=== PATIENT | female | born 1950 | race Caucasian/White ===

== ENCOUNTER 2021-02-15 08:48 | Emergency (ER) | payer OTHER, SELFPAY ==
[2021-02-15 08:49] VITALS: BP 119/59; PULSE 69; RESP 16; TEMP 36.6; O2SAT 100; BMI 20.2
--- NOTE | 2021-02-15 09:06 | CT_ITS ---
STUDY: CT ABDOMEN AND PELVIS WITH CONTRAST REASON FOR EXAM: Female, 70 years old. RUQ and RLQ pain -- IV PO Contrast RADIATION DOSAGE (If Supplied By Facility): CTDIvol = ( 11.00 ) mGy, DLP = ( 252.10 ) mGycm TECHNIQUE: Transaxial images were obtained from the dome of the diaphragm to the symphysis pubis without oral contrast. Oral and amp; IV Gastrografin and amp; 100mL Isovue-300 was administered. Sagittal and coronal images were reconstructed. Individualized dose optimization techniques were used for this CT. COMPARISON: None. FINDINGS: The visualized lung bases are unremarkable. The visualized portions of the heart are within normal limits. Normal liver. Normal gallbladder and extrahepatic biliary system. Normal spleen. Normal pancreas. Normal bilateral adrenal glands. Normal right kidney. 4.5 cm cyst in the upper pole the left kidney. Normal visualized stomach. Normal small intestine. Normal colon. There is non-visualization of the appendix. Normal abdominal aorta. Normal inferior vena cava. Normal retroperitoneum. Normal urinary bladder. Normal abdominal wall. Normal osseous structures. CT/Abdomen/Pelvis WITH Contrast IMPRESSION: No acute abnormality. Electronically Signed: Edwin Mcdonald MD at 11:58 EDT Tel , Service support ,
--- NOTE | 2021-02-15 09:07 | ED.VIS.GI ---
HPI HPI - GI History of Present Illness Chief Complaint: Abd Pain Informant: patient Abdominal Pain/Flank Pain Onset: Days Context: Gradual Onset Narrative Narrative: 70-year-old female presents with abdominal pain. She states this started 2 to 3 days ago but has been progressively worsening. She has nausea with no vomiting. She denies diarrhea or constipation. Denies blood in her stool. She denies fever. Denies chest pain or shortness of breath. She has right upper and right lower quadrant pain. Prior similar symptoms: No Recent Illness/Hospitalization: No PFSH PFSH Medical History (Updated 02/15/21 @ 12:[address] Ifeoma Smith MD) ADD (attention deficit disorder) Anxiety Chronic back pain Depression Essential tremor Fibromyalgia TIA (transient ischemic attack) Home Medications bupropion HCl 300 mg PO DAILY 10/28/16 [History Last Taken 10/27/16] etodolac 500 mg PO BID 10/28/16 [History Last Taken 10/28/16] gabapentin [Neurontin] 400 mg PO BID 10/28/16 [History Last Taken 10/28/16] gabapentin [Neurontin] 800 mg PO QHS 10/28/16 [History Last Taken 10/27/16] hydroxychloroquine 200 mg PO DAILYCM 10/28/16 [History Last Taken 10/28/16] mometasone-formoterol [Dulera] 2 puff IH BID 10/28/16 [History Last Taken 10/28/16] montelukast 10 mg PO QHS 10/28/16 [History Last Taken 10/27/16] nystatin 5 ml PO 4X/DAY 10/28/16 [History Last Taken 10/28/16] pantoprazole 40 mg PO DAILY 10/28/16 [History Last Taken 10/28/16] topiramate 200 mg PO BID 10/28/16 [History Last Taken 10/28/16] albuterol sulfate [ProAir HFA] 2 puff INHALATION Q4H PRN PRN 10/29/16 [History Last Taken Unknown] biotin 5,000 mcg PO DAILY 10/29/16 [History Last Taken Unknown] ceramides 1,3,6-II [CeraVe] 355 ml TP DAILY 10/29/16 [History Last Taken Unknown] desonide 1 applic TOPICAL BID PRN 10/29/16 [History Last Taken Unknown] doxycycline monohydrate [Monodox] 100 mg PO BID 10/29/16 [History Last Taken Unknown] fluticasone propionate 1 spray NASAL DAILY 10/29/16 [History Last Taken Unknown] folic acid 0.8 mg PO DAILY@0800 10/29/16 [History Last Taken Unknown] hyoscyamine sulfate 0.125 mg PO Q4H PRN PRN 10/29/16 [History Last Taken Unknown] mupirocin calcium [Bactroban] 1 applic TOPICAL PRN PRN 10/29/16 [History Last Taken Unknown] omega 9-bdl-ohd-other om3-D3 [[place]-3 + Vitamin D3] 200 ml PO DAILY 10/29/16 [History Last Taken Unknown] promethazine 25 mg PO Q6H PRN PRN 10/29/16 [History Last Taken Unknown] acetaminophen [Tylenol] 650 mg PO Q4H PRN PRN tab 10/30/16 [Rx Last Taken Unknown] atorvastatin 10 mg PO HS #30 tab 10/30/16 [Rx Last Taken Unknown] Allergy/AdvReac Type Severity Reaction Status Date / Time latex Allergy Swelling Verified 02/15/21 08:50 Sulfa (Sulfonamide Allergy Hives Verified 02/15/21 08:50 Antibiotics) duloxetine AdvReac Other Verified 02/15/21 08:50 pregabalin [From Lyrica] AdvReac Other Verified 02/15/21 08:50 Social History Smoking Status: Never smoker ROS ROS ED Constitutional Constitutional ED: Denies fever(s) Eyes Eyes: Denies change in vision ENT ENT ED: Denies rhinorrhea or sore throat Cardiovascular Cardiovascular: Denies chest pain or palpitations Respiratory/Chest Respiratory/Chest: Denies cough or dyspnea Gastrointestinal Gastrointestinal: Reports abdominal pain and nausea; Denies constipation, diarrhea or vomiting Genitourinary Genitourinary ED: Denies dysuria Musculoskeletal Musculoskeletal: Denies myalgias Integumentary Denies rash Neurologic Neurologic: Denies headache(s) Psychiatric Psychiatric: Denies suicidal thoughts EXAM Physical Exam Const Vital Signs: 02/15/21 08:49 02/15/21 10:56 02/15/21 12:06 Temperature 97.9 F Temperature Source Temporal Pulse Rate 69 69 81 Respiratory Rate 16 14 Blood Pressure 119/59 L 111/61 113/67 Blood Pressure Mean 79 77 82 Pulse Ox 100 99 99 Oxygen Delivery Method Room Air Room Air Room Air Positive well nourished and well developed General Appearance ED: well developed HEENT Reports normocephalic and head/scalp atraumatic Eyes PERRL and EOMs intact bilaterally Neck supple General: Negative for tenderness Chest Wall inspection of chest normal Resp normal respiratory effort and clear to auscultation bilaterally Cardio regular rate and regular rhythm GI non-distended Palpation: soft and tender RLQ and RUQ; Negative for guarding or rebound tenderness present no CVA tenderness Back/Spine General Back: Negative for CVA tenderness Extremity normal to inspection Neuro oriented x3 Sensorium / Orientation: alert Psych mental status grossly normal Skin Rashes: no rashes MDM MDM MDM Narrative Medical decision making narrative: Patient is given IV fluids. She declined pain medication. CBC, chemistries unremarkable. Lipase is normal. Urinalysis unremarkable. She was given Zofran IV. CT abdomen pelvis shows no acute process, nonvisualization of the appendix. On reevaluation she is resting comfortably. Her pain is more in the right upper quadrant than right lower quadrant. Discussed with Dr. Hernandez and patient will be seen as an outpatient. Patient is agreeable with this plan. Patient is advised signs and symptoms for which to return to the ED. Lab Data Attestation: I reviewed the patient's lab results. Labs: Laboratory Results - last 24 hr 02/15/21 02/15/21 02/15/21 09:12 09:15 09:15 WBC 6.1 RBC 3.90 L Hgb 12.9 Hct 39.5 MCV 101.3 H MCH 33.1 H MCHC 32.7 RDW Std Deviation 47.8 H RDW Coeff of Jeramy 12.8 Plt Count 238 MPV 9.2 Immature Gran % (Auto) 0.300 Neut % (Auto) 70.8 H Lymph % (Auto) 14.0 L Kendall % (Auto) 9.9 Eos % (Auto) 4.5 Baso % (Auto) 0.5 Absolute Neuts (auto) 4.3 Absolute Lymphs (auto) 0.85 Nucleated RBC % 0 Sodium 139 Potassium 4.0 Chloride 102 Carbon Dioxide 32.0 Anion Gap 5 BUN 16 Creatinine 0.53 L Estim Creat Clear Calc 40.07 Est GFR (MDRD) Af Amer 146 Est GFR (MDRD) Non-Af 120 BUN/Creatinine Ratio 30.0 H Glucose 94 Calcium 9.0 Total Bilirubin 0.50 AST 20 ALT 29 Alkaline Phosphatase 104 Total Protein 6.9 Albumin 3.6 Globulin 3.3 Albumin/Globulin Ratio 1.1 Lipase 118 Urine Color Straw Urine Clarity Clear Urine pH 7.0 Ur Specific [place] 1.005 Urine Protein Negative Urine Glucose (UA) Normal Urine Ketones Negative Urine Occult Blood 50 H Urine Nitrite Negative Urine Bilirubin Negative Urine Urobilinogen Normal Ur Leukocyte Esterase Negative Urine RBC 0-5 SEEN Urine WBC 0 SEEN Ur Squamous Epith Cells 0-5 SEEN Urine Bacteria 0 SEEN Urine Mucus 0 SEEN Radiography Diagnostic Testing: Radiology Impression Abdomen/Pelvis CT 02/15/21 09:06 IMPRESSION: No acute abnormality. Electronically Signed: Edwin Mcdonald MD at 11:58 EDT Tel , Service support , Discharge Plan Triage Chief Complaint: Abd Pain ED Provider: Ifeoma Smith Dx/Rx/DC Orders Clinical Impression: Abdominal pain of unknown cause Instructions: ED Abdominal Pain Unkn Cause Fem Prescriptions: No Action nystatin 100,000 UNIT/ML Oral.Susp 5 ml PO 4X/DAY RF: 0 gabapentin [Neurontin] 400 MG capsule 800 mg PO QHS RF: 0 gabapentin [Neurontin] 400 MG capsule 400 mg PO BID RF: 0 pantoprazole 40 MG tablet 40 mg PO DAILY RF: 0 montelukast 10 MG tablet 10 mg PO QHS RF: 0 topiramate 200 MG tablet 200 mg PO BID RF: 0 hydroxychloroquine 200 MG tablet 200 mg PO DAILYCM RF: 0 etodolac 500 MG tablet 500 mg PO BID RF: 0 bupropion HCl 300 MG tablet extended release 24 hr 300 mg PO DAILY RF: 0 mometasone-formoterol [Dulera] 8.8 GM Hfa.Aer.Ad 2 puff IH BID RF: 0 desonide 1 APPLIC cream 1 applic topical BID PRN (Reason: Itching) RF: 0 doxycycline monohydrate [Monodox] 100 MG capsule 100 mg PO BID RF: 0 hyoscyamine sulfate 0.125 MG Tab.Subl 0.125 mg PO Q4H PRN PRN (Reason: Cramp) RF: 0 promethazine 25 MG tablet 25 mg PO Q6H PRN PRN (Reason: Nausea) RF: 0 mupirocin calcium [Bactroban] 15 GM Cream..G. 1 applic topical PRN PRN (Reason: Itching) RF: 0 albuterol sulfate [ProAir HFA] 1 PUFF inhaler 2 puff inhalation Q4H PRN PRN (Reason: Asthma) RF: 0 fluticasone propionate 1 SPRAY Nasal.Sry 1 spray NASAL DAILY RF: 0 folic acid 0.8 MG tablet 0.8 mg PO DAILY@0800 RF: 0 ceramides 1,3,6-II [CeraVe] 355 ML Lotion 355 ml TP DAILY RF: 0 biotin 2,500 MCG capsule 5,000 mcg PO DAILY RF: 0 omega 4-shq-hbn-other om3-D3 [[place]-3 + Vitamin D3] 200 ML Liquid 200 ml PO DAILY RF: 0 atorvastatin 40 MG tablet 10 mg PO HS Qty: 30 RF: 0 acetaminophen [Tylenol] 325 MG tablet 650 mg PO Q4H PRN PRN (Reason: Headache/Temp>99F) RF: 0 Primary Care Provider: Trudy Benavides Referrals: Trudy Benavides MD [Primary Care Provider] - Margot Hernandez MD [STAFF PHYSICIAN] - Disposition Disposition: Home, Self Care
[2021-02-15 09:17] LABS: Bacteria 0 SEEN /hpf (None Seen); Mucous, Urine 0 SEEN /hpf (<or=2+); White Blood Cells 0 SEEN /hpf (0-5)
[2021-02-15 09:19] LABS: Absolute Lymphocyte Count 0.85 X10^3/uL (0.83-4.51); Absolute Neutrophil Count 4.3 X10^3/uL (2.0-7.7); Basophil# 0.03 X10^3/uL; Basophil% 0.5 % (0-1); Eosinophil# 0.27 X10^3/uL; Eosinophils% 4.5 % (0-5); Hematocrit 39.5 % (37-47); Hemoglobin 12.9 g/dL (12.0-15.0); Lymphocyte # 0.85 X10^3/ul (0.83-4.51); Mean Corp Hgb Conc 32.7 g/dL (32-36); Mean Corpuscular Hgb 33.1 pg (27.0-32.0); Mean Corpuscular Volume 101.3 fL (81-99); Mean Platelet Vol. 9.2 fl (6.2-12.0); Monocyte% 9.9 % (0-10); NRBC Flagged by Analyzer 0 % (0-5); Neutrophil # 4.28 X10^3/uL (2.7-7.7); Neutrophil % 70.8 % (47-70); Platelet Count 238 K/mm3 (150-450); RBC Distribution Width CV 12.8 % (11.6-14.6); RBC Distribution Width SD 47.8 fl (35.1-43.9); White Blood Count 6.1 K/mm3 (4.4-11.0)
[2021-02-15 09:20] LABS: Color, Urine Straw (Yellow); Glucose, Dipstick Normal (Normal); Ketone-Dipstick Negative (Negative); Leukocyte Esterase-Dipstick Negative /ul (Negative); Nitrite-Dipstick Negative (Negative); Occult Blood-Urine 50 /ul (Negative); Protein-Dipstick Negative (Negative); Specific Gravity, Urine 1.005 (1.002-1.030); Urine Bilirubin Dipstick Negative (Negative); Urine Clarity Clear (Clear); Urine Urobilinogen Normal (Normal)
[2021-02-15 09:32] LABS: Red Blood Cells-Urine 0-5 SEEN /hpf (0-5); Squamous Epithelial Cells - UA 0-5 SEEN /hpf (5-10)
[2021-02-15 09:35] LABS: ALB/GLOB Ratio 1.1 RATIO (0.9-2.4); AST(SGOT) 20 U/L (15-37); Alanine Aminotransfer ALT/SGPT 29 U/L (13-56); Albumin, Serum 3.6 g/dL (3.2-5.0); Alkaline Phosphatase 104 U/L (45-117); Anion Gap 5 (5-15); BUN 16 mg/dL (7-18); Chloride 102 mmol/L (98-107); Creatinine, Serum 0.53 mg/dL (0.55-1.02); EST Glomerular Filtration Rate 120 mL/min (>60); Est Glom Filt Rate - Afr Amer 146 mL/min (>60); Estimated Creatinine Clearance 40.07 ml/min; Globulin 3.3 g/dL (2.2-4.2); Glucose 94 mg/dL (74-106); Lipase 118 U/L (73-393); Protein, Total 6.9 g/dL (6.4-8.2); Sodium Level 139 mmol/L (136-145)
[2021-02-15] MEDS: Ondansetron 4 MG/2 ML Vial IV (10:39)
[2021-02-15 10:56] VITALS: BP 111/61; PULSE 69; O2SAT 99
[2021-02-15 12:06] VITALS: BP 113/67; PULSE 81; RESP 14; O2SAT 99
== END 2021-02-15 12:40 | disposition home or self-care (01) ==
PROVIDERS: Emergency Provider Emergency Medicine; PCP Internal Medicine
DX: R10.11 Right upper quadrant pain (principal); R10.31 Right lower quadrant pain; R11.0 Nausea; M79.7 Fibromyalgia; F32.9 Major depressive disorder, single episode, unspecified; Z79.899 Other long term (current) drug therapy; Z86.73 Personal history of transient ischemic attack (TIA), and cerebral infarction without residual deficits
CPT/HCPCS: 74177; 80053; 81001; 83690; 85025; 96361; 96374; 99283; J7040; Q9967; A4216; J2405